=== PATIENT | female | born 1930 | race Caucasian/White ===

== ENCOUNTER 2017-07-13 14:11 | Inpatient (IN) ==
[2017-07-13 16:57] VITALS: BMI 21.6
[2017-07-13] MEDS: DICLOFENAC 1% TOP GEL 100gm TP SCH ×3 (18:41→20:52)
[2017-07-13] MEDS: FERROUS SULFATE 324 MG TABLET PO SCH (18:41)
[2017-07-13] MEDS: HYDROCODONE/APAP 5mg/325mg TABLET PO PRN (23:22)
[2017-07-14] MEDS: HYDROCODONE/APAP 5mg/325mg TABLET PO PRN (05:53)
[2017-07-14] MEDS: FERROUS SULFATE 324 MG TABLET PO SCH ×2 (09:00→17:31)
[2017-07-14] MEDS: DICLOFENAC 1% TOP GEL 100gm TP SCH ×4 (09:02→20:56)
[2017-07-14] MEDS: AMLODIPINE 10 MG TABLET PO SCH (09:02)
[2017-07-14] MEDS: LIDOCAINE 5% PATCH TOP SCH (09:02)
[2017-07-14] MEDS: MULTI-VITAMIN + MINERAL TABLET PO SCH (09:05)
[2017-07-14] MEDS: ASPIRIN *EC* 81 MG TABLET PO SCH (09:05)
--- NOTE | 2017-07-14 09:42 | History & Physical Report ---
History of Present Illness Date: 07/14/17 (PCP: Dr. Blu Hernandez) Chief complaint: Fall, prolonged downtime HPI: Daisy is a very pleasant 86-year-old female but appears younger than her stated age. She has a very difficult past medical history. She had apparently fallen on 07/07/2017, and remained on the floor until 07/10/2017 when she was found by her family. (She does have a life alert, which she doesn't wear). EMS was called, and she was taken into the hospital at [facility]. She was subsequently admitted with acute kidney injury, and baseline creatinine of 1.51. I am assuming there was some degree of rhabdomyolysis, but I do not have a CPK to confirm that diagnosis. Medical records from [facility] are limited in regards to what was sent with the patient, so history of lab and other medical occurrences while inpatient are not available to me. Following medical stabilization, recommendation has been made for inpatient rehabilitation. She has been transferred to [facility] IRU for further evaluation and treatment. Medical management consult has been requested from our service. Daisy has been up with therapy this morning. She is complaining of some low back pain and fatigue today. She denies any other acute complaints or concerns, other than the desire to return to bed and rest this morning following therapy. Review of Systems All systems PM: 10-point ROS was reviewed, no additional remarkable complaints except Review of systems: Her main complaint today is generalized fatigue and low back pain. She does not report any other acute complaints or concerns today. Past Medical History Medical History: Medical History (Last Reviewed 02/21/17 @ 10:13 by John Fowler MD) Cataracts, both eyes Pneumonia Medical History Updates: Allergic rhinitis. Anemia of chronic disease. Cataract. Chronic kidney disease, baseline creatinine approximately 1.2. 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 Status post renal transplant 1970. Heart failure, ejection fraction unknown. 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 HTN. GERD, esophageal dysmotility; PUD. Migraine. Mitral regurg. Osteoporosis. Pulmonary tuberculosis status post wedge resection, right. Rheumatic fever. 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 SLE, rheumatoid arthritis, not currently following with rheumatology. Traumatic hematoma of the face. Denies prior history of PE or DVT Surgical History: Colonoscopy, EGD. Renal transplant, 1971. LEROY/BSO. Bilateral tubal ligation. Blood transfusion. Cataract. Hip replacement, bilateral. History of septic joint status post I&D of the hip. Laminectomy. Right lobectomy. Splenectomy. Thyroidectomy Family History: Family History Brother: CAD, diabetes, [place] Mother: Old age Father: Dementia Sister: Chronic kidney disease, stomach cancer Child: Hypertension Family History: As Above - Social History Smoking status: Never smoker Substance use type: does not use Alcohol intake frequency: does not drink Housing: house Current occupational status: retired Current residence: Apartment/Private Home Medications Home Medications Medication Instructions Recorded Confirmed Type Acetaminophen [Tylenol Arthritis] 650 mg PO Q6HR PRN #0 08/31/09 07/13/17 History Amlodipine Besylate 10 mg PO DAILY #0 12/18/15 07/13/17 History Aspirin [Aspir 81] 81 mg PO DAILY #0 12/18/15 07/13/17 History Ferrous Sulfate 325 mg PO BIDWM #0 12/18/15 07/13/17 History Multivit,Calc,Mins/Iron/Folic 1 tab PO DAILY #0 12/18/15 07/13/17 History [Thera M Plus Tablet] predniSONE [Prednisone] 3 mg PO DAILY #0 12/18/15 07/13/17 History Diclofenac Top Gel [Voltaren] 1 applicatio TP QID 07/13/17 07/13/17 History Lidocaine 5% Patch [Lidoderm] 1 patch TOP DAILY 07/13/17 07/13/17 History Metoprolol Tartrate [Lopressor] 12.5 mg PO BIDWM 07/13/17 07/13/17 History Ondansetron HCl [Zofran] 4 mg PO Q6HR PRN 07/13/17 07/13/17 History Allergies Allergy/AdvReac Type Severity Reaction Status Date / Time cefdinir Allergy Unknown Verified 07/13/17 19:19 pneumococcal vaccine Allergy Unknown Verified 07/14/17 16:10 tramadol Allergy Unknown Verified 07/13/17 19:19 Exam Vital Signs: Temperature 97.6 F 07/14/17 08:00 Pulse Rate 63 07/14/17 08:00 Respiratory Rate 16 07/14/17 08:00 Blood Pressure 109/51 07/14/17 08:00 Pulse Oximetry 95 07/14/17 08:00 Height/Weight/BMI: Height 1.59 m Weight 54.4 kg Body Mass Index 21.6 - Constitutional Present: no acute distress, average body habitus, cooperative, other (frail, generalized weakness) Comments: Gen.: Patient is up in a chair, awake and alert. Mildly anxious. Appears frail and elderly. Head: Atraumatic, normocephalic ENT: no external trauma. Oral mucosa is moist. Neck: Supple. No cervical lymphadenopathy appreciated. Cardiovascular: S1, S2. Regular rate and rhythm. No appreciable murmur. No edema. Pulmonary: Lungs are clear to auscultation bilaterally. No crackles or wheezes. No shortness of air Abdomen: Soft, nontender, nondistended. : Deferred. Extremities: No edema, cyanosis or clubbing. Neurologic: Grossly intact as tested Results - Labs CBC & Chem 7: 07/14/17 05:00 07/14/17 05:00 Labs: Admission labs 07/10/2017 White blood cells 11.1 Hgb 12.2 HCT 37.5 plt 275 Sodium 148 CO2 15 Potassium 4.0 BUN 37 SCR 1.51 ESR 49 CPK 279 B12 1700 Troponin, UA, Lactate OK BNP Ok. - ECG Data Tracing #1 I reviewed this ECG and interpreted as documented below: Multiple EKGs from via [facility] reviewed. Atrial fibrillation, concern for anterior lateral and inferior ischemia. - Impressions Admission imaging 07/10/[address] lumbar spine without contrast No acute CT findings. Multilevel moderate to advanced neural foraminal narrowing. 2. Chest x-ray Normal 3. X-ray pelvis, bilateral Hardware intact, no acute bony abnormalities Assessment and Plan (1) Unspecified fall, subsequent encounter Current visit: Yes Status: Acute Assessment and Plan: Impression: Fall with prolonged down time Acute kidney injury, resolved Kidney disease status post renal transplant, Baseline serum creatinine around 1.1 Generalized weakness Acute on chronic low back pain Chronic immunosuppression: Status post transplant, rheumatoid arthritis, SLE History of septic joint, 2015 (GBS positive) Heart failure, unknown ejection fraction Atrial fibrillation GERD 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 Anemia, acute on chronic Plan: 07/14/2017 Agree with IRU admission. Therapy per attending. We will follow for medical management, care post discharge will be returned to Dr. Hernandez. We will need to follow lab frequently due to her multiple comorbidities. Anemia is noted, unclear on her baseline. Her hemoglobin was around 12 upon acute admission, but she was quite dehydrated. She does have noted macrocytosis. B12 was elevated. Folate not done, will assess. Mild Rhabdo, with CPK 279, trending down on discharge. Despite abnormal EKG, Troponin ok. She is chronically immunosuppressed. White blood cell count mildly elevated, but she does not appear acutely infected. She is on chronic steroid therapy. Assess UA for baseline. Chest x-ray done at [facility] was benign. Assess EKG for baseline here at [facility]. Continue Lidoderm patch for pain control of lower back. Use caution with Voltaren gel even her known chronic kidney disease. If pain & weakness persist, we may need to consider an MRI of her lumbar spine. Will add LMWH for DVT px. Continue supportive care. Thank you for the consult- we will follow with you. DVT Prophylaxis: Lovenox Resuscitation Status: Full Code - Physician Narrative Physician: Vannesa Raymundo MD Narrative: Date: 07/14/17 Time: 2039 I have independently evaluated and examined this patient. I reviewed the chart, the patient's history, and the GERIATRICS PHYSICIAN/PA's documented findings as above. We discussed and formulated the assessment and plan as above with additions as below: Mrs. Worley transferred from [facility] after hospitalization for acute kidney injury after a fall after which she was on the floor for approximately 2-1/2 days. Remarkably CPK was minimally elevated although she did develop acute kidney injury. At present she describes generalized myalgias and abdominal bruising. She reports fatigue after working with therapy today. NAD, alert, fluent speech Respirations nonlabored, good airflow, breath sounds clear anteriorly Regular rhythm, S1-S2 Abdomen soft with several large hematomas present primarily in the right lower quadrant Labs as above; creatinine today 1.1-near baseline. Supportive care in conjunction with physical therapy for strengthening. Decrease iron to once daily based on recent data that twice a day dosing decreases the effectiveness of iron therapy. Hospital Course Summary Disclaimer: The visit summary below is not to be considered part of the above Progress Note. Hospital Course: Impression: Fall with prolonged down time Acute kidney injury, resolved Kidney disease status post renal transplant, Baseline serum creatinine around 1.1 Generalized weakness Acute on chronic low back pain Chronic immunosuppression: Status post transplant, rheumatoid arthritis, SLE History of septic joint, 2015 (GBS positive) Heart failure, unknown ejection fraction Atrial fibrillation GERD 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 Anemia, acute on chronic Plan: 07/14/2017 Agree with IRU admission. Therapy per attending. We will follow for medical management, care post discharge will be returned to Dr. Hernandez. We will need to follow lab frequently due to her multiple comorbidities. Anemia is noted, unclear on her baseline. Her hemoglobin was around 12 upon acute admission, but she was quite dehydrated. She does have noted macrocytosis. B12 was elevated. Folate not done, will assess. Mild Rhabdo, with CPK 279, trending down on discharge. Despite abnormal EKG, Troponin ok. She is chronically immunosuppressed. White blood cell count mildly elevated, but she does not appear acutely infected. She is on chronic steroid therapy. Assess UA for baseline. Chest x-ray done at [facility] was benign. Assess EKG for baseline here at [facility]. Continue Lidoderm patch for pain control of lower back. Use caution with Voltaren gel even her known chronic kidney disease. If pain & weakness persist, we may need to consider an MRI of her lumbar spine. Will add LMWH for DVT px. Continue supportive care. Thank you for the consult- we will follow with you. Addendum entered and electronically signed by Raquel Dai APRN 07/14/17 10:19 : Further records were obtained from [facility]. She was noted to have a temperature of 101.8 on the day of dismissal. Follow-up chest x-ray was obtained , and was negative. Repeat UA was done and was negative. Patient did undergo an MRI of the lumbar spine, which showed no traumatic fracture or misalignment. Multilevel DDD, and no evidence of abscess. White blood cell count was 9.8 on the date of dismissal. Dr. Bills was notified of atrial fibrillation, and plans to follow up with the patient as an outpatient. HR was regulated on low- dose metoprolol, and ASA was continued for anti-platelet therapy. Call provider order for temp of 101.0 added- if occurs, will need to check Blood cultures. Monitor joints due to hx of septic arthritis (remote- 2014).
--- NOTE | 2017-07-14 11:11 | IRU History & Physical Report ---
HPI IRU Date: Date: 07/14/17 Time: 1107 HPI: Daisy is an 86 year old female who fell on 07/07/2017. He remained on the floor until 07/10/2017 found by her family. She was taken to the hospital via [facility] admitted with acute kidney injury and medically evaluated. She is being transferred to the rehabilitation unit for recovery from this injury. Her main complaint is of left low back pain which limits her ability to function. [facility] Patient Stated Medical History Cataracts Yes Congestive Heart Failure Yes Heart Murmur Yes Hypertension Yes Rheumatic Fever Yes Valvular Heart Disease Yes: 'LEAKY VALVE' Pneumonia Yes: HX Tuberculosis Yes: HX OF Constipation Yes: Pt. reports it is not unusual for her to go a few days w/o BM Hx Incontinence No Anemia Yes Osteoarthritis Yes Other Musculoskeletal osteoporosis Clinic Medical History (Last Reviewed 02/21/17 @ 10:13 by John Fowler MD) Cataracts, both eyes (Acute Medical) Pneumonia (Acute Medical) Medical History Updates: Allergic rhinitis. Anemia of chronic disease. Cataract. Chronic kidney disease, baseline creatinine approximately 1.2. 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 Status post renal transplant 1970. Heart failure, ejection fraction unknown. Palliative Senior Np Dr. Bills. HTN. GERD, esophageal dysmotility; PUD. Migraine. Mitral regurg. Osteoporosis. Pulmonary tuberculosis status post wedge resection, right. Rheumatic fever. 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 SLE, rheumatoid arthritis, not currently following with rheumatology. Traumatic hematoma of the face. Denies prior history of PE or DVT Surgical History: Colonoscopy, EGD. Renal transplant, 1970. LEROY/BSO. Bilateral tubal ligation. Blood transfusion. Cataract. Hip replacement, bilateral. History of septic joint status post I&D of the hip. Laminectomy. Right lobectomy. Splenectomy. Thyroidectomy Family History: Family History (Last Reviewed 02/21/17 @ 10:13 by John Fowler MD) Sister Lupus Cancer Stomach Father Enlarged heart Mother No problems noted. - Social History Smoking status: Never smoker Substance use type: does not use Alcohol intake frequency: does not drink Housing: house Current occupational status: retired Current residence: Apartment/Private Home Review of Systems Comprehensive ROS: completed and no additional positive findings except those as stated - Constitutional Constitutional: Present: as per HPI, fatigue, malaise Medications Home Medications Medication Instructions Recorded Confirmed Type Acetaminophen [Tylenol Arthritis] 650 mg PO Q6HR PRN #0 08/31/09 07/13/17 History Amlodipine Besylate 10 mg PO DAILY #0 12/18/15 07/13/17 History Aspirin [Aspir 81] 81 mg PO DAILY #0 12/18/15 07/13/17 History Ferrous Sulfate 325 mg PO BIDWM #0 12/18/15 07/13/17 History Multivit,Calc,Mins/Iron/Folic 1 tab PO DAILY #0 12/18/15 07/13/17 History [Thera M Plus Tablet] predniSONE [Prednisone] 3 mg PO DAILY #0 12/18/15 07/13/17 History Diclofenac Top Gel [Voltaren] 1 applicatio TP QID 07/13/17 07/13/17 History Lidocaine 5% Patch [Lidoderm] 1 patch TOP DAILY 07/13/17 07/13/17 History Metoprolol Tartrate [Lopressor] 12.5 mg PO BIDWM 07/13/17 07/13/17 History Ondansetron HCl [Zofran] 4 mg PO Q6HR PRN 07/13/17 07/13/17 History Allergies Allergy/AdvReac Type Severity Reaction Status Date / Time cefdinir Allergy Unknown Verified 07/13/17 19:19 tramadol Allergy Unknown Verified 07/13/17 19:19 Exam Vital Signs: Temperature 97.6 F 07/14/17 08:00 Pulse Rate 63 07/14/17 08:00 Respiratory Rate 16 07/14/17 08:00 Blood Pressure 109/51 07/14/17 08:00 Pulse Oximetry 95 07/14/17 08:00 Height/Weight/BMI: Height 1.59 m Weight 54.4 kg Body Mass Index 21.6 - Constitutional Present: moderate distress, well nourished - Routine HEENT Exam Head: Present: normocephalic - Routine Respiratory Exam Present: CTA bilaterally - Routine Cardiovascular Exam Present: RRR - Routine Abdominal Exam Present: soft - Routine Back/Spine/Pelvis Exam Back/Spine: Present: paraspinal tenderness Pelvis: Present: SI joint tenderness - Routine Neurological Exam Present: alert, oriented X3 - Routine Psychiatric Exam Present: normal affect IRU A/P (1) Unspecified fall, subsequent encounter Current visit: Yes Status: Acute (2) History of back surgery Current visit: No Status: Chronic (3) Status post kidney transplant Current visit: No Status: Chronic DVT Prophylaxis: Lovenox Resuscitation Status: Full Code - Course Hospital Course: John Fowler MD: - Interventions to Obtain Goals PT Treatment Plan: Balance/Proprioception, Electrical Stimulation, Functional Activities, Hot/Cold Pack OT Treatment Plan: ADL (Basic Care), Balance Training, IADL, Pt./Family Education, Ther. Exercise for ADL Goals Progress/Modifications: mobilize
--- NOTE | 2017-07-14 11:19 | IRU 24Hr Post Admit Eval ---
24 Hr Post Admission Physical - Relevant Changes Relevant Changes: No Reviewed: I have reviewed the patient's information and concur with the finding and results of the pre-admission screen. Certification: I certify the patient for rehabilitation. - Patient Condition (1) Unspecified fall, subsequent encounter Status: Acute Code(s): W19.XXXD - Unspecified fall, subsequent encounter Classification: Present on IRF Admission (2) History of back surgery Status: Chronic Code(s): Z98.890 - Other specified postprocedural states Classification: Present on IRF Admission (3) Status post kidney transplant Status: Chronic Code(s): Z94.0 - Kidney transplant status Classification: Present on IRF Admission, Diagnosis Requiring Medical Follow Up (continue to monitor) - Prior Functional Status Lives With: Alone Residence Type: Apartment/Private Home Assitive Devices: None Prior Functional Status: Indep. at home or school - Current Functional Status Current Level of Function: reduced due to pain Failed Alternative Therapy: Arrived from Acute Care Patient Requirements: The patient requires oversight by rehabilitation physician to manage their rehabilitation treatment plan and multidisciplinary approach to care that can only be provided in an IRF and requires a multidisciplinary approach to care, provided by professional PTs, OTs, STs, dieticians, RTs, rehabilitation nurses and is not available in lesser levels of care. Limitations Req: Mobility Impairment, Limited Mobility Physical Therapy Minutes: 90 Occupational Therapy Minutes: 90 Therapy: The patient is to receive therapy at least 5 days a week. - Complications/Comorbidities Barriers to Discharge: Weakness, Balance, Endurance - Impact of Co-morbidities on function need to monitor kidney function - Plan to Avoid Complications Plan to Avoid Complications: The patient cannot receive this care in a lesser intensive setting such as Shelter or Outpatient Therapy due to the patient requiring the following .
--- NOTE | 2017-07-14 11:24 | IRU Progress Note ---
- Subjective/Serverity of Illness Date: 07/14/17 Left low back and SI joint area are very painful today. Laboratory studies reveal slightly elevated white count, high C-reactive protein, creatinine of 1.1 and 21. She is also anemic with a hemoglobin of 8.7. Exam Vital Signs: Temperature 97.6 F 07/14/17 08:00 Pulse Rate 63 07/14/17 08:00 Respiratory Rate 16 07/14/17 08:00 Blood Pressure 109/51 07/14/17 08:00 Pulse Oximetry 95 07/14/17 08:00 Height/Weight/BMI: Height 1.59 m Weight 54.4 kg Body Mass Index 21.6 - Constitutional Present: moderate distress - Routine Back/Spine/Pelvis Exam Back/Spine: Present: paraspinal tenderness Pelvis: Present: SI joint tenderness (left side) - Routine Neurological Exam Present: alert, oriented X3 - Routine Psychiatric Exam Present: normal affect IRU A/P (1) Unspecified fall, subsequent encounter Current visit: Yes Status: Acute (2) History of back surgery Current visit: No Status: Chronic (3) Status post kidney transplant Current visit: No Status: Chronic DVT Prophylaxis: Lovenox Resuscitation Status: Full Code - Course Hospital Course: John Fowler MD: - Interventions to Obtain Goals PT Treatment Plan: Balance/Proprioception, Electrical Stimulation, Functional Activities, Hot/Cold Pack OT Treatment Plan: ADL (Basic Care), Balance Training, IADL, Pt./Family Education, Ther. Exercise for ADL
--- NOTE | 2017-07-14 11:26 | IRU Plan of Care ---
IRU Overall Plan of Care - Patient Impairments (1) Unspecified fall, subsequent encounter Code(s): W19.XXXD - Unspecified fall, subsequent encounter Status: Acute Classification: Present on IRF Admission (2) History of back surgery Code(s): Z98.890 - Other specified postprocedural states Status: Chronic Classification: Present on IRF Admission (3) Status post kidney transplant Code(s): Z94.0 - Kidney transplant status Status: Chronic Classification: Present on IRF Admission, Diagnosis Requiring Medical Follow Up (continue to monitor) - Relevant Changes Reviewed: I have reviewed the patient's information and concur with the finding and results of the pre-admission screen. Certification: I certify the patient for rehabilitation. - Medical Prognosis Medical Prognosis: Fair Vital Signs: Last Vital Signs Temp 97.6 F 07/14/17 08:00 Pulse 63 07/14/17 08:00 Resp 16 07/14/17 08:00 BP 109/51 07/14/17 08:00 Pulse Ox 95 07/14/17 08:00 - Anticipated Interventions Anticipated Interventions: The patient requires inpatient IRF care for PT, OT, and/or ST for residuals remaining from [] resulting in muscular weakness and strength deficits. - Current Functional Status Failed Alternative Therapy: Arrived from Acute Care Patient Requires: The patient requires oversight by rehabilitation physician to manage their rehabilitation treatment plan and multidisciplinary approach to care that can only be provided in an IRF and requires a multidisciplinary approach to care, provided by professional PTs, OTs, STs, rehabilitation nurses, and may require STs, dieticians, and RTS. This is not available in lesser levels of care. Physical Therapy Minutes: 90 Occupational Therapy Minutes: 90 Therapy: The patient is to receive therapy at least 5 days a week. - Anticipated LOS/Outcomes Anticipated Functional Outcome: return to prior living arrangements Anticipated Length of Stay (days): 14 Anticipated DC Destination: Home, Self Detention Safety Plan: The patient will be provided with the development of a Home Safety Plan for return to a home or home-like environment and and to ensure safety post discharge. - Plan to Avoid Complications Barriers to Attaining Goals: Weakness, Balance, Endurance Plan to Avoid Complications: The patient cannot receive this care in a lesser intensive setting such as [facility] or Outpatient Therapy due to the patient requiring the following .
[2017-07-14] MEDS: LIDOCAINE PATCH REMOVAL TOP SCH (21:16)
[2017-07-15] MEDS: HYDROCODONE/APAP 5mg/325mg TABLET PO PRN ×4 (00:16→21:08)
[2017-07-15] MEDS: ONDANSETRON 4 MG TABLET PO PRN ×2 (05:29→11:49)
[2017-07-15] MEDS: FERROUS SULFATE 324 MG TABLET PO SCH (08:43)
[2017-07-15] MEDS: MULTI-VITAMIN + MINERAL TABLET PO SCH (08:44)
[2017-07-15] MEDS: ENOXAPARIN 40 MG/0.4 ML INJECTION SQ SCH (08:44)
[2017-07-15] MEDS: LIDOCAINE 5% PATCH TOP SCH (08:44)
[2017-07-15] MEDS: AMLODIPINE 10 MG TABLET PO SCH (08:45)
[2017-07-15] MEDS ORDERED: DICLOFENAC 1% TOP GEL 100gm TP PRN (09:00)
[2017-07-15] MEDS: AMLODIPINE 5 MG TABLET PO SCH (09:30)
[2017-07-15] MEDS: ASPIRIN *EC* 81 MG TABLET PO SCH (09:37)
--- NOTE | 2017-07-15 09:49 | Progress Note ---
Progress Note: Daisy was seen today in follow-up. She continues to endorse having significant left hip pain. She continues to require frequent pain medication in addition to the Lidoderm patch. Concerned that we need to obtain further imaging due to her past history of septic hip. She does endorse a prior history of infection in the left hip, and reports that Dr. Fowler did have to previously perform an I&D due to infection. She is agreeable to further evaluation of this hip. She did have low grade temp overnight. Continues to have persistent leukocytosis , and CRP is quite elevated. Vital Signs - 24 hr 07/14/17 16:00 07/14/17 20:03 07/15/17 00:59 Temperature 99.0 F 98.9 F Pulse Rate 85 92 Respiratory Rate 14 20 16 Blood Pressure 108/55 113/72 Pulse Oximetry 97 97 07/15/17 08:00 Temperature 97.4 F Pulse Rate 102 H Respiratory Rate 18 Blood Pressure 112/54 Pulse Oximetry 96 She is in the dining area, so I did not attempt to examine her hip. She is awake and alert, in no distress. Skin is warm and pink. She is breathing without difficulty. Abdomen is benign 07/15/17 03:52 07/14/17 07/15/17 05:00 03:52 WBC 11.2 H 11.7 H RBC 2.69 L 2.66 L Hgb 8.9 L 8.7 L Hct 27.5 L 27.2 L MCV 102.2 H 102.3 H MCH 33.1 32.7 MCHC 32.4 32.0 RDW Std Deviation 49.6 49.1 Plt Count 215 226 MPV 10.3 10.8 Immature Gran % (Auto) 0.2 Not performed Neut % (Auto) 72.6 H Not performed Lymph % (Auto) 13.0 L Not performed [place] % (Auto) 13.5 H Not performed Eos % (Auto) 0.6 Not performed Baso % (Auto) 0.1 Not performed Neut # (Auto) 8.1 H Not performed Lymph # (Auto) 1.5 Not performed [place] # (Auto) 1.5 H Not performed Eos # (Auto) 0.1 Not performed Baso # (Auto) 0.0 Not performed Abs Immat Gran (auto) 0.02 Not performed Neutrophils % (Manual) 80.0 H Band Neutrophils % 2.0 Lymphocytes % (Manual) 16.0 L Monocytes % (Manual) 1.0 Eosinophils % (Manual) 1.0 Neutrophils # (Manual) 9.4 H Band Neutrophils # 0.2 Lymphocytes # (Manual) 1.9 Monocytes # (Manual) 0.1 Eosinophils # (Manual) 0.1 RBC Morph Comment Normal CRP 178.8 --> 190.7 Impression: Persistent leukocytosis History of septic hip, group B strep Immunocompromise (RA, SLE, H/O renal transplant) HTN, with blood pressure trending down Plan: CT hip, left to R/O septic joint Monitor WBC, fever. Observe off abx for now. Get BC x 2. Repeat labs in AM. Decrease Amlodipine dosing. D/W pt- she agrees with further imaging. D/W Dr. Raymundo.
[2017-07-16] MEDS: LIDOCAINE PATCH REMOVAL TOP SCH ×2 (01:09→21:41)
[2017-07-16] MEDS: LIDOCAINE 5% PATCH TOP SCH (08:58)
[2017-07-16] MEDS: FERROUS SULFATE 324 MG TABLET PO SCH (08:59)
[2017-07-16] MEDS: AMLODIPINE 5 MG TABLET PO SCH (09:00)
[2017-07-16] MEDS: ASPIRIN *EC* 81 MG TABLET PO SCH (09:00)
[2017-07-16] MEDS: ENOXAPARIN 40 MG/0.4 ML INJECTION SQ SCH (09:00)
[2017-07-16] MEDS: MULTI-VITAMIN + MINERAL TABLET PO SCH (09:02)
[2017-07-16] MEDS: HYDROCODONE/APAP 5mg/325mg TABLET PO PRN (09:44)
--- NOTE | 2017-07-16 12:32 | CT Scan Report ---
Indication: Left hip pain, hx of septic hip PROCEDURE: CT hip LT wo con: Encounter: Initial Comparison: None Technique: Axial CT images were performed through the left hip without intravenous contrast. Coronal and sagittal two-dimensional reformats. Automated Exposure Control and Iterative Reconstruction dose reducing techniques were utilized. Findings: Metallic artifact from the left hip replacement. No acute fracture identified. No focal fluid collection appreciated. Soft tissues of the pelvis where seen are grossly normal. Muscular attenuation is within normal limits. No periosteal reaction or lytic osseous destructive lesion seen. There is a small amount of cement seen in the left pelvic sidewall that traversed the cortex of the acetabulum. Impression: No acute fracture or abscess. There is a preliminary report by [facility]. .
[2017-07-17] MEDS: HYDROCODONE/APAP 5mg/325mg TABLET PO PRN ×4 (02:11→23:30)
[2017-07-17] MEDS: ENOXAPARIN 40 MG/0.4 ML INJECTION SQ SCH (08:53)
[2017-07-17] MEDS: FERROUS SULFATE 324 MG TABLET PO SCH (08:54)
[2017-07-17] MEDS: AMLODIPINE 5 MG TABLET PO SCH (08:54)
[2017-07-17] MEDS: MULTI-VITAMIN + MINERAL TABLET PO SCH (08:54)
[2017-07-17] MEDS: ASPIRIN *EC* 81 MG TABLET PO SCH (08:54)
[2017-07-17] MEDS: LIDOCAINE 5% PATCH TOP SCH (11:08)
--- NOTE | 2017-07-17 11:48 | Progress Note ---
Progress Note: I discussed the issue of resuscitation with Daisy today per request of the nurse. The patient had apparently told someone that she did not want to be resuscitated in the event of an arrest. She repeated that to me today and states she does NOT want any heroic actions to be undertaken in the event of an arrest. No CPR, no vents, no meds, no intubation.
--- NOTE | 2017-07-17 14:32 | IRU Progress Note ---
- Subjective/Serverity of Illness Date: 07/17/17 Daisy was interviewed and examined in her room on acute inpatient rehabilitation. She had fallen at home and was on the floor for prolonged time. She was admitted to a hospital in [place] and then transferred here for rehabilitation. She does have a remote history of kidney transplant from her brother who was a donor in 1970. Her renal function has remained stable but did have a bump in her creatinine upon admission to [facility]. That has since improved. She complains of significant pain in the left hip. She does have history of previous infection in the left hip apparently. She was running a low-grade fever of 100 which has resolved. Blood cultures are negative 2. CT of the left hip has been performed and is unremarkable. Etiology of her left hip pain is unclear. She is tender to palpate over the greater trochanteric bursa so this could be a bursitis. She is cooperative with therapy. We had a discussion with her regarding resuscitation desires and please see separate note in this regard. Essentially she requests that she be made a no CODE BLUE. Medical issues we are actively monitoring and managing as follows: 1. Generalized debilitation from her fall 2. Left hip pain with negative imaging including CT scan. I would suspect trochanteric bursitis in this regard. 3. Anemia, likely of chronic disease related to renal failure although rule out acute blood loss. 4. History of atrial fibrillation. Current electrocardiogram shows ectopic atrial rhythm versus atrial fibrillation. She is on enoxaparin at present. 5. Back pain Exam Vital Signs: Temperature 98.4 F 07/17/17 07:30 Pulse Rate 84 07/17/17 07:30 Respiratory Rate 16 07/17/17 07:30 Blood Pressure 105/46 07/17/17 07:30 Pulse Oximetry 95 07/17/17 07:30 Height/Weight/BMI: Height 1.59 m Weight 54.4 kg Body Mass Index 21.6 - Constitutional Present: mild distress (Left hip pain), well nourished, well developed, thin, cooperative - Routine HEENT Exam Head: Present: normocephalic Eye: Present: EOMI ENT: Present: mucous membranes moist, oropharynx clear - Routine Neck Exam Present: supple - Routine Respiratory Exam Present: decreased breath sounds, CTA bilaterally. Absent: wheezes - Routine Cardiovascular Exam Present: RRR, S1, S2. Absent: murmur - Routine Abdominal Exam Present: soft, normoactive bowel sounds, non distended. Absent: tenderness - Routine Extremities Exam Present: no edema, normal capillary refill - Routine Back/Spine/Pelvis Exam Comments: She is this was late tender over the left lateral trochanteric bursa. - Routine Skin Exam Present: dry, warm - Routine Neurological Exam Present: alert, oriented X3, CN II-XII intact - Routine Psychiatric Exam Present: normal affect, cooperative Results IRU - Labs Labs: I have reviewed other providers notes as well as the patient's laboratory findings and imaging studies. IRU A/P (1) Unspecified fall, subsequent encounter Current visit: Yes Status: Acute Patient continues to be debilitated from her fall. Has pain in the left hip is will be described subsequently. She is cooperative with therapy. (2) Left hip pain Current visit: Yes Status: Acute Has exquisite tenderness to the left greater trochanteric bursa area. Imaging studies have been negative including CT scan. Inflammatory markers are elevated and she does have history of infection in the hip although CT is negative and thus it is less likely this is an infection. (3) Back pain Qualifiers: Back pain location: low back pain Chronicity: chronic Back pain laterality: midline Sciatica presence: without sciatica Qualified Code(s): M54.5 - Low back pain; G89.29 - Other chronic pain Current visit: Yes Status: Chronic Apparently has back pain predating the current episode. This is an ongoing problem for her however. (4) Anemia Qualifiers: Anemia type: due to chronic kidney disease Chronic kidney disease stage: stage 3 (moderate) Qualified Code(s): N18.3 - Chronic kidney disease, stage 3 (moderate); D63.1 - Anemia in chronic kidney disease Current visit: Yes Status: Chronic I'm not certain how far back the anemia dates. Iron studies indicate low serum are as well as reduced TIBC, consistent with anemia of chronic disease. (5) Debility Current visit: Yes Status: Acute DVT Prophylaxis: Lovenox Resuscitation Status: Do Not Resuscitate - Course Hospital Course: John Fowler MD: 07/17/17 14:37 Patient is cooperative with therapy. She requests no resuscitation in the event of an arrest. Recent fever appears to have resolved. CT of left hip negative. - Interventions to Obtain Goals PT Treatment Plan: Balance/Proprioception, Electrical Stimulation, Functional Activities, Hot/Cold Pack, Gait Training, Patient/Family Education, Therapeutic Exercise OT Treatment Plan: ADL (Basic Care), Balance Training, IADL, Pt./Family Education, Ther. Exercise for ADL Goals Progress/Modifications: Patient has elevation of inflammatory markers as well as low-grade fever. However the fever has resolved. Concern was expressed about the possibility of a left hip infection because the pain. CT scan is negative of the left hip. She is tender in the left greater trochanteric bursa and I imagine this represents a bursitis. Her creatinine is stable at present. She does have evidence of GFR around 47, consistent with stage III chronic kidney disease. She does have history of previous renal transplant in 1970 from her brother. She does have anemia and this is likely related to renal etiology as her TIBC is low. She does have quite a bit of discomfort. She is cooperative with therapy however and I anticipate that she will make good progress ultimately.
[2017-07-17] MEDS: LIDOCAINE PATCH REMOVAL TOP SCH (23:30)
[2017-07-18] MEDS: CIPROFLOXACIN 500 MG TABLET PO SCH ×2 (01:46→17:17)
[2017-07-18] MEDS: LIDOCAINE 5% PATCH TOP SCH ×2 (07:39→13:42)
[2017-07-18] MEDS: ASPIRIN *EC* 81 MG TABLET PO SCH (08:35)
[2017-07-18] MEDS: FERROUS SULFATE 324 MG TABLET PO SCH (08:36)
[2017-07-18] MEDS: MULTI-VITAMIN + MINERAL TABLET PO SCH (08:36)
[2017-07-18] MEDS: AMLODIPINE 5 MG TABLET PO SCH (08:36)
[2017-07-18] MEDS: ENOXAPARIN 40 MG/0.4 ML INJECTION SQ SCH (08:38)
--- NOTE | 2017-07-18 11:23 | IRU Progress Note ---
- Subjective/Serverity of Illness Date: 07/18/17 Ms. Worley was interviewed and examined in her room on inpatient rehabilitation. She has continued to have a low-grade temperature of 99. Her urinalysis was markedly positive for full field white cells. Culture is pending. She has now been started on Cipro. She continues to have discomfort in the left hip. This is tender to palpate and is most consistent with a trochanteric bursitis. Denies any loss of appetite or nausea or vomiting. She denies any chest pain. She states that she is tired. From a therapy standpoint she is able to ambulate with a front-wheeled walker with standby assist. This is a significant improvement. She continues to require quite a bit of assistance with transfers however. Exam Vital Signs: Temperature 99.2 F 07/18/17 08:00 Pulse Rate 102 H 07/18/17 08:00 Respiratory Rate 18 07/18/17 08:00 Blood Pressure 128/56 07/18/17 08:00 Pulse Oximetry 94 07/18/17 08:00 Height/Weight/BMI: Height 1.59 m Weight 54.4 kg Body Mass Index 21.6 - Constitutional Present: no acute distress, well nourished, well developed, thin, cooperative Comments: Appears a bit fatigued or depressed. - Routine HEENT Exam Eye: Present: EOMI ENT: Present: mucous membranes moist, oropharynx clear - Routine Neck Exam Present: supple - Routine Respiratory Exam Present: decreased breath sounds, CTA bilaterally. Absent: wheezes - Routine Cardiovascular Exam Present: RRR, S1, S2. Absent: murmur - Routine Abdominal Exam Present: soft, normoactive bowel sounds, non distended. Absent: tenderness - Routine Extremities Exam Present: no edema, normal capillary refill - Routine Skin Exam Present: dry, warm - Routine Neurological Exam Present: alert, oriented X3, CN II-XII intact - Routine Psychiatric Exam Present: normal affect, cooperative, depressed (possibly) Results IRU - Labs Labs: I reviewed her lab including recent UA obtained today along with labs and other chart notes. IRU A/P (1) Unspecified fall, subsequent encounter Current visit: Yes Status: Acute She continues to be quite debilitated from her fall but is making substantial progress. She is able to ambulate 70 feet with a front-wheeled walker. (2) Left hip pain Current visit: Yes Status: Acute Likely this is related to underlying trochanteric bursitis. She is tender to palpate in this area and the CT was negative. However, I would not recommend the use of nonsteroidals in view of her history of kidney problems. (3) Back pain Qualifiers: Back pain location: low back pain Chronicity: chronic Back pain laterality: midline Sciatica presence: without sciatica Qualified Code(s): M54.5 - Low back pain; G89.29 - Other chronic pain Current visit: Yes Status: Chronic (4) Anemia Qualifiers: Anemia type: due to chronic kidney disease Chronic kidney disease stage: stage 3 (moderate) Qualified Code(s): N18.3 - Chronic kidney disease, stage 3 (moderate); D63.1 - Anemia in chronic kidney disease Current visit: Yes Status: Chronic (5) Debility Current visit: Yes Status: Acute (6) UTI (urinary tract infection) Qualifiers: Urinary tract infection type: acute cystitis Hematuria presence: with hematuria Qualified Code(s): N30.01 - Acute cystitis with hematuria Current visit: Yes Status: Acute Continues to have low-grade fever of 99. Her urinalysis is positive. She has been started on Cipro by the hospitalist service overnight. DVT Prophylaxis: Lovenox Resuscitation Status: Do Not Resuscitate - Course Hospital Course: John Fowler MD: 07/17/17 14:37 Patient is cooperative with therapy. She requests no resuscitation in the event of an arrest. Recent fever appears to have resolved. CT of left hip negative. 07/18/17 11:24 UTI diagnosed. Low-grade temp 99. Cooperative with therapy and making progress. - Interventions to Obtain Goals PT Treatment Plan: Balance/Proprioception, Electrical Stimulation, Functional Activities, Hot/Cold Pack, Gait Training, Patient/Family Education, Therapeutic Exercise OT Treatment Plan: ADL (Basic Care), Balance Training, IADL, Pt./Family Education, Ther. Exercise for ADL Goals Progress/Modifications: She continues to complain of discomfort in the left hip which is most consistent with a trochanteric bursitis. However non-steroidals are relatively contraindicated for her. We'll continue therapy. She has been diagnosed with a UTI based on urinalysis and low-grade fever. She continues to run a temperature of 99. She is now on Cipro. I considered other options with regard to the left hip in terms of topical treatment but it is slowly getting better and I think the best course would be to treated symptomatically rather than with a specific medication.
[2017-07-18] MEDS: HYDROCODONE/APAP 5mg/325mg TABLET PO PRN ×2 (13:46→19:41)
--- NOTE | 2017-07-18 14:15 | IRU Team Meeting ---
IRU Team Meeting - Nursing Bladder Assistive Devices Utilized:: Absorbent Pad Bladder Management Level of Assist: Modified Independent Bladder Frequency of Accidents: No accidents Bowel Assistive Devices Utilized:: Medication Bowel Management Level of Assist: Independent Bowel Frequency of Accidents: No accidents Vital Signs: Vital Signs - 24 hr 07/17/17 15:42 07/17/17 20:30 07/18/17 08:00 Temperature 99.1 F 98.3 F 99.2 F Pulse Rate 94 82 102 H Respiratory Rate Blood Pressure 124/52 121/58 128/56 Pulse Oximetry 95 95 94 Current Medications: Acetaminophen (Tylenol Arthritis 650 Mg Sr) 650 mg PO Q6HR PRN PRN Reason: P Last Admin: 07/18/17 05:08 Dose: 650 mg Hydrocodone Bitart/Acetaminophen ([place] 5/325) 0.5 tab PO Q4H PRN PRN Reason: Pain Last Admin: 07/18/17 13:46 Dose: 0.5 tab Amlodipine Besylate (Norvasc) 5 mg PO DAILY COUNT INCLUDES THE [facility] Last Admin: 07/18/17 08:36 Dose: 5 mg Aspirin (Ecotrin) 81 mg PO DAILY COUNT INCLUDES THE [facility] Last Admin: 07/18/17 08:35 Dose: 81 mg Ciprofloxacin (Cipro 500 Mg) 500 mg PO Q12HR COUNT INCLUDES THE [facility] Last Admin: 07/18/17 01:46 Dose: 500 mg Diclofenac Sodium (Voltaren) 1 applic TP QID PRN PRN Reason: Pain Last Admin: 07/17/17 19:31 Dose: 1 applic Enoxaparin Sodium (Lovenox) 40 mg SQ DAILY COUNT INCLUDES THE [facility] Last Admin: 07/18/17 08:38 Dose: 40 mg Ferrous Sulfate (Feosol) 324 mg PO WB COUNT INCLUDES THE [facility] Last Admin: 07/18/17 08:36 Dose: 324 mg Lidocaine (Lidoderm) 1 patch TOP DAILY COUNT INCLUDES THE [facility] Last Admin: 07/18/17 13:42 Dose: Not Given Lidocaine HCl/Dextrose (Lidoderm Patch Removal) 1 removal TOP 2100 COUNT INCLUDES THE [facility] Last Admin: 07/17/17 23:30 Dose: 1 removal Magnesium Hydroxide (Mom) 30 ml PO DAILY PRN PRN Reason: Constipation Last Admin: 07/18/17 08:44 Dose: 30 ml Metoprolol Tartrate (Lopressor) 12.5 mg PO BIDWM COUNT INCLUDES THE [facility] Last Admin: 07/18/17 08:35 Dose: 12.5 mg Multivitamins/Minerals (Therapeutic - M) 1 tab PO DAILY COUNT INCLUDES THE [facility] Last Admin: 07/18/17 08:36 Dose: 1 tab Ondansetron HCl (Zofran Po) 4 mg PO Q6HR PRN PRN Reason: Nausea Last Admin: 07/15/17 11:49 Dose: 4 mg Prednisone (Deltasone 1 Mg) 3 mg PO WB COUNT INCLUDES THE [facility] Last Admin: 07/18/17 08:36 Dose: 3 mg Current Medical Issues: Left hip pain, hx of acute kidney injury, new UTI Comments: I certify that I personally led the interdisciplinary team meeting and agree with comments, barriers and goals indicated. Team meeting was held in the patient's room with the patient and the following family members present: patient alone Ms. Worley has been running a low-grade fever. Her urinalysis was positive for UTI and she is now on Cipro. She has complained of left hip pain which likely is related to trochanteric bursitis. We are hesitant to use nonsteroidals in view of her history of kidney problems and we will try ionophoresis with decadron. Her creatinine is now normal. - Physical Therapy Bed, Chair, Wheelchair Transfer Assist: Stand By Assist/Supervision, 1 Person Assist Ambulation Ability: Stand By Assist/Supervision, 1 Person Assist Ambulation Distance: 168 Stair Climbing Ability: Patient Refuses Car Transfer Ability: Stand By Assist/Supervision, 1 Person Assist Comments: Patient requires motivation to fully participate. She does have some reduced right lower extremity mobility due to pain. She also is beginning to limit the left lower extremity. She complains of discomfort with even light palpation of her back both hips and both eyes. With encouragement and time patient does demonstrate progression toward goals. - Occupational Therapy Eating Ability: Independent Grooming Ability: Stand By Assist/Supervision Bathing Ability: Minimal Assistance Upper Body Dressing Ability: Independent Lower Body Dressing Ability: Minimal Assistance Tub Transfer Assist: Minimal Assistance Toileting Assist: Stand By Assist/Supervision Toilet Transfer Assist: Minimal Assistance Comments: She is progressing with occupational therapy but requires frequent encouragement to follow through with her tasks. She is using assistive devices. Lower body dressing and bathing is with minimal assistance. - Goals Physical Therapy Goals: 07/18/17. 1.) Modified [place] with transfers. 2. ) Modified [place] with ambulation. Occupational Therapy Goals: OT goals 07/18/17: 1.) Upper body dressing independently. 2.) Lower body dressing with modified independence. 3.) Toilet transfers with modified independence. 4.) Light meal preparation with modified independence. - Barriers to Discharge Barriers to Attaining Goals: Balance (to address balance, proprioceptive training and balance training is offered.), Endurance (to improve endurance, fewer rest breaks are encouraged.), Other (patient requires positive reinforcement to improve motivation for participation with therapy.) - Care Plan Anticipated Length of Stay (days): 7 Anticipated DC Destination: Home, Self Care I have led this team conference and agree with the plan. Interventions/Goals: Patient requires encouragement for increased motivation. We will initiate local treatment of the left hip pain which likely is related to trochanteric bursitis. Anticipation safe transition to her home environment in about a week.
--- NOTE | 2017-07-18 14:39 | Progress Note ---
- Date 07/18/17 Subjective: Daisy was in her recliner this afternoon. She still has severe left hip pain. She has had low-grade temps in the 99s. She denies cough/cold or SOA. No abdominal pain or GI complaints. She denies dysuria or frequency but indicated some urgency shortly after I arrived in her room. Nurses report urinary frequency, which triggered an order for UA, which was positive for UTI. Objective Vital signs: Temperature 99.2 F 07/18/17 08:00 Pulse Rate 102 H 07/18/17 08:00 Respiratory Rate 18 07/18/17 08:00 Blood Pressure 128/56 07/18/17 08:00 Pulse Oximetry 94 07/18/17 08:00 Height/Weight/BMI: Height 1.59 m Weight 54.4 kg Body Mass Index 21.6 - Constitutional Present: no acute distress, well nourished, well developed, thin - Routine HEENT Exam Head: Present: normocephalic Eye: Present: PERRL. Absent: conjunctival icterus, scleral injection ENT: Present: mucous membranes moist, oropharynx clear - Routine Respiratory Exam Present: crackles (faint crackles to B/L bases that improved with deep breathing ) - Routine Cardiovascular Exam Present: RRR, S1, S2 - Routine Abdominal Exam Present: soft, normoactive bowel sounds, non distended, non tender - Routine Extremities Exam Present: no edema, pulses intact - Routine Musculoskeletal Exam Musculoskeletal: Present: moving extremities well - Routine Skin Exam Present: intact, dry, warm - Routine Neurological Exam Present: alert, CN II-XII intact, normal speech - Routine Psychiatric Exam Present: normal affect, normal thought process, cooperative Results - Labs CBC & Chem 7: 07/16/17 04:55 07/15/17 03:52 Microbiology Results: Microbiology 07/18/17 00:45 Urine, Voided (Cc/notcc) Urine Culture - Preliminary Escherichia coli 07/15/17 10:31 Peripheral/Iv Start Blood Culture - Preliminary No Growth After 3 Days 07/15/17 10:30 Peripheral/Iv Start Blood Culture - Preliminary No Growth After 3 Days Assessment and Plan (1) Unspecified fall, subsequent encounter Current visit: Yes Status: Acute Assessment and Plan: Impression: Fall with prolonged down time Acute kidney injury, resolved Kidney disease status post renal transplant, Baseline serum creatinine around 1.1 Generalized weakness Acute on chronic low back pain Chronic immunosuppression: Status post transplant, rheumatoid arthritis, SLE History of septic joint, 2014 (GBS positive) Heart failure, unknown ejection fraction Atrial fibrillation GERD 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 Anemia, acute on chronic Plan: UTI with E. coli - Cipro started 07/18/17. Sensitivities pending. Leukocytosis resolved. Anemia - iron studies are low. Continue ferrous sulfate. Folate normal. VSS with occ mild tachycardia. DVT Prophylaxis: Lovenox Resuscitation Status: Do Not Resuscitate - Physician Narrative Narrative: Date: 07/18/17 Time: 1436 Hospital Course Summary Disclaimer: The visit summary below is not to be considered part of the above Progress Note. 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 Anemia, acute on chronic Plan: 07/14/2017 Agree with IRU admission. Therapy per attending. We will follow for medical management, care post discharge will be returned to Dr. Hernandez. We will need to follow lab frequently due to her multiple comorbidities. Anemia is noted, unclear on her baseline. Her hemoglobin was around 12 upon acute admission, but she was quite dehydrated. She does have noted macrocytosis. B12 was elevated. Folate not done, will assess. Mild Rhabdo, with CPK 279, trending down on discharge. Despite abnormal EKG, Troponin ok. She is chronically immunosuppressed. White blood cell count mildly elevated, but she does not appear acutely infected. She is on chronic steroid therapy. Assess UA for baseline. Chest x-ray done at [facility] was benign. Assess EKG for baseline here at [facility]. Continue Lidoderm patch for pain control of lower back. Use caution with Voltaren gel even her known chronic kidney disease. If pain & weakness persist, we may need to consider an MRI of her lumbar spine. Will add LMWH for DVT px. Continue supportive care. Thank you for the consult- we will follow with you. 07/18/17 UTI with E. coli - Cipro started 07/18/17. Sensitivities pending. Leukocytosis resolved. Anemia - iron studies are low. Continue ferrous sulfate. Folate normal.
[2017-07-19] MEDS: LIDOCAINE PATCH REMOVAL TOP SCH ×2 (03:20→21:30)
[2017-07-19] MEDS: FERROUS SULFATE 324 MG TABLET PO SCH (09:54)
[2017-07-19] MEDS: MULTI-VITAMIN + MINERAL TABLET PO SCH (09:55)
[2017-07-19] MEDS: LIDOCAINE 5% PATCH TOP SCH (09:56)
[2017-07-19] MEDS: AMLODIPINE 5 MG TABLET PO SCH (09:56)
[2017-07-19] MEDS: CIPROFLOXACIN 500 MG TABLET PO SCH ×2 (09:56→21:08)
[2017-07-19] MEDS: ENOXAPARIN 40 MG/0.4 ML INJECTION SQ SCH (09:56)
[2017-07-19] MEDS: HYDROCODONE/APAP 5mg/325mg TABLET PO PRN ×2 (09:57→21:08)
[2017-07-19] MEDS: ASPIRIN *EC* 81 MG TABLET PO SCH (09:57)
[2017-07-20] MEDS: HYDROCODONE/APAP 5mg/325mg TABLET PO PRN ×3 (02:41→18:03)
[2017-07-20] MEDS: ASPIRIN *EC* 81 MG TABLET PO SCH (08:49)
[2017-07-20] MEDS: AMLODIPINE 5 MG TABLET PO SCH (08:49)
[2017-07-20] MEDS: CIPROFLOXACIN 500 MG TABLET PO SCH ×2 (08:49→20:52)
[2017-07-20] MEDS: FERROUS SULFATE 324 MG TABLET PO SCH (08:50)
[2017-07-20] MEDS: MULTI-VITAMIN + MINERAL TABLET PO SCH (08:50)
[2017-07-20] MEDS: ENOXAPARIN 40 MG/0.4 ML INJECTION SQ SCH (08:51)
[2017-07-20] MEDS: LIDOCAINE 5% PATCH TOP SCH (08:51)
--- NOTE | 2017-07-20 11:30 | IRU Progress Note ---
- Subjective/Serverity of Illness Date: 07/20/17 Daisy was reassess in her room on inpatient rehabilitation. She reports that she did well this morning with ambulation. Then she took a step and had more pain in the left hip. This has been well evaluated with plain films as well as CT scan. It is my opinion that this likely represents a soft tissue problem consistent with bursitis. Iontophoresis will be initiated today with dexamethasone. She otherwise states that her bowels are moving relatively well. She denies any nausea or vomiting. She denies any chest pain or shortness of breath. She does have easy fatigability. Exam Vital Signs: Temperature 98.0 F 07/20/17 07:31 Pulse Rate 88 07/20/17 07:31 Respiratory Rate 16 07/20/17 07:31 Blood Pressure 129/58 07/20/17 07:31 Pulse Oximetry 96 07/20/17 07:31 Height/Weight/BMI: Height 1.59 m Weight 54.3 kg Body Mass Index 21.6 - Constitutional Present: mild distress (left hip), well nourished, well developed, thin, cooperative - Routine HEENT Exam Eye: Present: EOMI ENT: Present: mucous membranes moist, oropharynx clear - Routine Neck Exam Present: supple - Routine Respiratory Exam Present: CTA bilaterally. Absent: wheezes - Routine Cardiovascular Exam Present: RRR, S1, S2. Absent: murmur - Routine Abdominal Exam Present: soft, normoactive bowel sounds, non distended. Absent: tenderness - Routine Extremities Exam Present: no edema - Routine Skin Exam Present: dry, warm - Routine Neurological Exam Present: alert, oriented X3, CN II-XII intact - Routine Psychiatric Exam Present: normal affect Results IRU - Labs Labs: I have reviewed other providers notes as well as chart data. IRU A/P (1) Unspecified fall, subsequent encounter Current visit: Yes Status: Acute She continues to improve with PT and OT with anticipated safe transfer to home early next week. (2) Left hip pain Current visit: Yes Status: Acute Patient will start iontophoresis today with dexamethasone for relief of what I believe to be left trochanteric bursitis. (3) Back pain Qualifiers: Back pain location: low back pain Chronicity: chronic Back pain laterality: midline Sciatica presence: without sciatica Qualified Code(s): M54.5 - Low back pain; G89.29 - Other chronic pain Current visit: Yes Status: Chronic (4) Anemia Qualifiers: Anemia type: due to chronic kidney disease Chronic kidney disease stage: stage 3 (moderate) Qualified Code(s): N18.3 - Chronic kidney disease, stage 3 (moderate); D63.1 - Anemia in chronic kidney disease Current visit: Yes Status: Chronic (5) Debility Current visit: Yes Status: Acute (6) UTI (urinary tract infection) Qualifiers: Urinary tract infection type: acute cystitis Hematuria presence: with hematuria Qualified Code(s): N30.01 - Acute cystitis with hematuria Current visit: Yes Status: Acute Tolerating antibiotic adequately without nausea or vomiting. DVT Prophylaxis: Lovenox Resuscitation Status: Do Not Resuscitate - Course Hospital Course: John Fowler MD: 07/17/17 14:37 Patient is cooperative with therapy. She requests no resuscitation in the event of an arrest. Recent fever appears to have resolved. CT of left hip negative. 07/18/17 11:24 UTI diagnosed. Low-grade temp 99. Cooperative with therapy and making progress. 07/20/17 11:30 Cooperate with therapy. Making progress. Iontophoresis started today with regard to left hip bursitis. - Interventions to Obtain Goals PT Treatment Plan: Balance/Proprioception, Electrical Stimulation, Functional Activities, Hot/Cold Pack, Gait Training, Patient/Family Education, Therapeutic Exercise OT Treatment Plan: ADL (Basic Care), Balance Training, IADL, Pt./Family Education, Ther. Exercise for ADL
[2017-07-20] MEDS: LIDOCAINE PATCH REMOVAL TOP SCH (20:53)
[2017-07-21] MEDS: HYDROCODONE/APAP 5mg/325mg TABLET PO PRN ×2 (00:58→09:01)
[2017-07-21] MEDS: LIDOCAINE 5% PATCH TOP SCH (08:49)
[2017-07-21] MEDS: AMLODIPINE 5 MG TABLET PO SCH (08:52)
[2017-07-21] MEDS: CIPROFLOXACIN 500 MG TABLET PO SCH ×2 (08:53→20:15)
[2017-07-21] MEDS: MULTI-VITAMIN + MINERAL TABLET PO SCH (09:01)
[2017-07-21] MEDS: ENOXAPARIN 40 MG/0.4 ML INJECTION SQ SCH (09:01)
[2017-07-21] MEDS: FERROUS SULFATE 324 MG TABLET PO SCH (09:01)
[2017-07-21] MEDS: ASPIRIN *EC* 81 MG TABLET PO SCH (09:01)
--- NOTE | 2017-07-21 11:01 | IRU Progress Note ---
- Subjective/Serverity of Illness Date: 07/21/17 Daisy was reassessed in her room on inpatient rehabilitation. She states that the iontophoresis was beneficial with regard to the left hip pain. She continues to progress with therapy and is becoming more independent. She does complain of her feet being "numb." No pain is noted. Pulses are present but diminished. There is no edema. Reviewing therapy, she is modified independent for most activities. She is able to ambulate over 150 feet at modified independent level. Exam Vital Signs: Temperature 98.3 F 07/21/17 08:00 Pulse Rate 77 07/21/17 08:00 Respiratory Rate 14 07/21/17 08:00 Blood Pressure 126/58 07/21/17 08:00 Pulse Oximetry 97 07/21/17 08:00 Height/Weight/BMI: Height 1.59 m Weight 54.3 kg Body Mass Index 21.6 - Constitutional Present: no acute distress, well nourished, well developed Comments: Seems tired and discouraged. - Routine HEENT Exam Eye: Present: EOMI ENT: Present: mucous membranes moist, oropharynx clear - Routine Respiratory Exam Present: decreased breath sounds, CTA bilaterally. Absent: wheezes - Routine Cardiovascular Exam Present: RRR, S1, S2. Absent: murmur - Routine Abdominal Exam Present: soft, normoactive bowel sounds, non distended. Absent: tenderness - Routine Extremities Exam Present: no edema, normal capillary refill - Routine Skin Exam Present: dry, warm - Routine Neurological Exam Present: alert, oriented X3, CN II-XII intact - Routine Psychiatric Exam Present: normal affect, cooperative, depressed (possible) IRU A/P (1) Unspecified fall, subsequent encounter Current visit: Yes Status: Acute Her debilitation is substantially improved. She is able to perform most activities with modified independent level of functioning. (2) Left hip pain Current visit: Yes Status: Acute Patient states that the iontophoresis was beneficial with regard to the left hip pain. (3) Back pain Qualifiers: Back pain location: low back pain Chronicity: chronic Back pain laterality: midline Sciatica presence: without sciatica Qualified Code(s): M54.5 - Low back pain; G89.29 - Other chronic pain Current visit: Yes Status: Chronic (4) Anemia Qualifiers: Anemia type: due to chronic kidney disease Chronic kidney disease stage: stage 3 (moderate) Qualified Code(s): N18.3 - Chronic kidney disease, stage 3 (moderate); D63.1 - Anemia in chronic kidney disease Current visit: Yes Status: Chronic (5) Debility Current visit: Yes Status: Acute (6) UTI (urinary tract infection) Qualifiers: Urinary tract infection type: acute cystitis Hematuria presence: with hematuria Qualified Code(s): N30.01 - Acute cystitis with hematuria Current visit: Yes Status: Acute DVT Prophylaxis: Lovenox Resuscitation Status: Do Not Resuscitate - Course Hospital Course: John Fowler MD: 07/17/17 14:37 Patient is cooperative with therapy. She requests no resuscitation in the event of an arrest. Recent fever appears to have resolved. CT of left hip negative. 07/18/17 11:24 UTI diagnosed. Low-grade temp 99. Cooperative with therapy and making progress. 07/20/17 11:30 Cooperate with therapy. Making progress. Iontophoresis started today with regard to left hip bursitis. 07/21/17 11:01 Patient is doing well with therapy. Anticipate safe transfer to home early next week. - Interventions to Obtain Goals PT Treatment Plan: Balance/Proprioception, Electrical Stimulation, Functional Activities, Hot/Cold Pack, Gait Training, Patient/Family Education, Therapeutic Exercise OT Treatment Plan: ADL (Basic Care), Balance Training, IADL, Pt./Family Education, Ther. Exercise for ADL
[2017-07-21] MEDS: LIDOCAINE PATCH REMOVAL TOP SCH (20:14)
[2017-07-22] MEDS: HYDROCODONE/APAP 5mg/325mg TABLET PO PRN ×2 (00:53→21:22)
[2017-07-22] MEDS: FERROUS SULFATE 324 MG TABLET PO SCH (09:10)
[2017-07-22] MEDS: MULTI-VITAMIN + MINERAL TABLET PO SCH (09:10)
[2017-07-22] MEDS: AMLODIPINE 5 MG TABLET PO SCH (09:11)
[2017-07-22] MEDS: CIPROFLOXACIN 500 MG TABLET PO SCH ×2 (09:11→21:22)
[2017-07-22] MEDS: ASPIRIN *EC* 81 MG TABLET PO SCH (09:11)
[2017-07-22] MEDS: ENOXAPARIN 40 MG/0.4 ML INJECTION SQ SCH (09:11)
[2017-07-22] MEDS: LIDOCAINE 5% PATCH TOP SCH (09:30)
--- NOTE | 2017-07-22 11:32 | Progress Note ---
- Date 07/22/17 Subjective: Daisy was resting in her bedside chair. While therapy is going well and her hip pain is better, she states that she had a miserable night. She was very restless all night and hardly slept. She denies other c/o this am. She requests to get back in bed to rest. Objective Vital signs: Temperature 98.4 F 07/22/17 07:46 Pulse Rate 80 07/22/17 07:46 Respiratory Rate 16 07/22/17 07:46 Blood Pressure 127/50 07/22/17 07:46 Pulse Oximetry 90 07/22/17 07:46 Height/Weight/BMI: Height 1.59 m Weight 54.3 kg Body Mass Index 21.6 - Constitutional Present: no acute distress, well nourished, well developed - Routine HEENT Exam Head: Present: normocephalic Eye: Absent: conjunctival icterus, scleral injection - Routine Respiratory Exam Present: CTA bilaterally - Routine Cardiovascular Exam Present: RRR, S1, S2 - Routine Abdominal Exam Present: soft, normoactive bowel sounds, non distended, non tender - Routine Extremities Exam Present: no edema - Routine Skin Exam Present: intact, dry, warm - Routine Neurological Exam Present: alert, oriented X3, normal speech - Routine Psychiatric Exam Present: normal affect, normal thought process, cooperative Results - Labs CBC & Chem 7: 07/19/17 05:06 07/19/17 05:06 Microbiology Results: Microbiology 07/15/17 10:31 Peripheral/Iv Start Blood Culture - Final No Growth After 5 Days 07/15/17 10:30 Peripheral/Iv Start Blood Culture - Final No Growth After 5 Days 07/18/17 00:45 Urine, Voided (Cc/notcc) Urine Culture - Final Escherichia coli Assessment and Plan (1) Unspecified fall, subsequent encounter Current visit: Yes Status: Acute Assessment and Plan: Impression: Fall with prolonged down time Acute kidney injury, resolved Kidney disease status post renal transplant, Baseline serum creatinine around 1.1 Generalized weakness Acute on chronic low back pain Chronic immunosuppression: Status post transplant, rheumatoid arthritis, SLE History of septic joint, 2015 (GBS positive) Heart failure, unknown ejection fraction Atrial fibrillation GERD 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 Anemia, acute on chronic Thrombocytosis, acute Plan: L hip pain improving after iontophoresis on 07/20 Labs from 09/18 reviewed - anemia stable with hgb 8.5. Increase in platelets noted to 404. WBC normal. Repeat labs on 07/24. Continue Cipro for E. coli UTI - will plan on 5-day course. DC planned 07/25. DVT Prophylaxis: Lovenox Resuscitation Status: Do Not Resuscitate - Physician Narrative Narrative: Date: 07/22/17 Time: 1129 Hospital Course Summary Disclaimer: The visit summary below is not to be considered part of the above Progress Note. 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 Anemia, acute on chronic Plan: 07/14/2017 Agree with IRU admission. Therapy per attending. We will follow for medical management, care post discharge will be returned to Dr. Hernandez. We will need to follow lab frequently due to her multiple comorbidities. Anemia is noted, unclear on her baseline. Her hemoglobin was around 12 upon acute admission, but she was quite dehydrated. She does have noted macrocytosis. B12 was elevated. Folate not done, will assess. Mild Rhabdo, with CPK 279, trending down on discharge. Despite abnormal EKG, Troponin ok. She is chronically immunosuppressed. White blood cell count mildly elevated, but she does not appear acutely infected. She is on chronic steroid therapy. Assess UA for baseline. Chest x-ray done at [facility] was benign. Assess EKG for baseline here at [facility]. Continue Lidoderm patch for pain control of lower back. Use caution with Voltaren gel even her known chronic kidney disease. If pain & weakness persist, we may need to consider an MRI of her lumbar spine. Will add LMWH for DVT px. Continue supportive care. Thank you for the consult- we will follow with you. 07/18/17 UTI with E. coli - Cipro started 07/18/17. Sensitivities pending. Leukocytosis resolved. Anemia - iron studies are low. Continue ferrous sulfate. Folate normal. 07/22/17 L hip pain improving after iontophoresis on 6/14 Labs from 09/18 reviewed - anemia stable with hgb 8.5. Increase in platelets noted to 404. WBC normal. Repeat labs on 07/24. Continue Cipro for E. coli UTI - will plan on 5-day course. DC planned 07/25.
[2017-07-22] MEDS: LIDOCAINE PATCH REMOVAL TOP SCH (22:51)
[2017-07-23] MEDS: LIDOCAINE 5% PATCH TOP SCH ×2 (07:53→08:31)
[2017-07-23] MEDS: ENOXAPARIN 40 MG/0.4 ML INJECTION SQ SCH ×2 (07:54→08:31)
[2017-07-23] MEDS: ASPIRIN *EC* 81 MG TABLET PO SCH (08:57)
[2017-07-23] MEDS: AMLODIPINE 5 MG TABLET PO SCH (08:57)
[2017-07-23] MEDS: FERROUS SULFATE 324 MG TABLET PO SCH (08:57)
[2017-07-23] MEDS: MULTI-VITAMIN + MINERAL TABLET PO SCH (08:57)
[2017-07-23] MEDS: ONDANSETRON 4 MG TABLET PO PRN (11:13)
[2017-07-23] MEDS: HYDROCODONE/APAP 5mg/325mg TABLET PO PRN (20:56)
[2017-07-23] MEDS: LIDOCAINE PATCH REMOVAL TOP SCH (21:18)
[2017-07-24] MEDS: HYDROCODONE/APAP 5mg/325mg TABLET PO PRN ×2 (06:22→22:08)
[2017-07-24] MEDS: ENOXAPARIN 40 MG/0.4 ML INJECTION SQ SCH (09:01)
[2017-07-24] MEDS: LIDOCAINE 5% PATCH TOP SCH (09:01)
[2017-07-24] MEDS: FERROUS SULFATE 324 MG TABLET PO SCH (09:02)
[2017-07-24] MEDS: ASPIRIN *EC* 81 MG TABLET PO SCH (09:02)
[2017-07-24] MEDS: MULTI-VITAMIN + MINERAL TABLET PO SCH (09:03)
[2017-07-24] MEDS: AMLODIPINE 5 MG TABLET PO SCH (09:03)
--- NOTE | 2017-07-24 11:18 | IRU Progress Note ---
- Subjective/Serverity of Illness Date: 07/24/17 Daisy was reassessed on inpatient rehabilitation unit. She is cooperative with therapy. She does display some reduced motivation. From a medical standpoint she is stable. She has received at least 3 episodes of iontophoresis with some benefit. She reports discomfort mainly in the left groin rather than the trochanteric bursa at this time. From an occupational therapy standpoint the patient is standby assist for lower body dressing and is able to dress her upper body with modified independent level. Toileting is modified independent with her activities being independent to modified independent. Physical therapy transfers are standby assist. She is able to ambulate 180 feet with a front wheeled walker with standby assist. Her son would like to have her see a neurologist upon dismissal because of numbness in the lower extremities. We will arrange this per request. Exam Vital Signs: Temperature 97.9 F 07/24/17 08:00 Pulse Rate 89 07/24/17 08:00 Respiratory Rate 20 07/24/17 08:00 Blood Pressure 112/54 07/24/17 08:00 Pulse Oximetry 96 07/24/17 08:00 Height/Weight/BMI: Height 1.59 m Weight 54.3 kg Body Mass Index 21.6 - Constitutional Present: well nourished, well developed, thin, cooperative Comments: Somewhat reduced motivation is noted at times. - Routine HEENT Exam ENT: Present: mucous membranes moist - Routine Neck Exam Present: supple - Routine Respiratory Exam Present: CTA bilaterally. Absent: wheezes - Routine Cardiovascular Exam Present: RRR, S1, S2. Absent: murmur - Routine Abdominal Exam Present: soft, normoactive bowel sounds, non distended. Absent: tenderness - Routine Extremities Exam Present: no edema, normal capillary refill - Routine Skin Exam Present: dry, warm - Routine Neurological Exam Present: alert, oriented X3, CN II-XII intact - Routine Psychiatric Exam Present: normal affect IRU A/P (1) Unspecified fall, subsequent encounter Current visit: Yes Status: Acute (2) Left hip pain Current visit: Yes Status: Acute Patient's left hip pain seems to have migrated into the left groin which may imply more of a degenerative joint disease issue rather than the trochanteric bursitis at this time. (3) Back pain Qualifiers: Back pain location: low back pain Chronicity: chronic Back pain laterality: midline Sciatica presence: without sciatica Qualified Code(s): M54.5 - Low back pain; G89.29 - Other chronic pain Current visit: Yes Status: Chronic (4) Anemia Qualifiers: Anemia type: due to chronic kidney disease Chronic kidney disease stage: stage 3 (moderate) Qualified Code(s): N18.3 - Chronic kidney disease, stage 3 (moderate); D63.1 - Anemia in chronic kidney disease Current visit: Yes Status: Chronic Repeat hemoglobin is stable at 8.6. (5) Debility Current visit: Yes Status: Acute She has missed significant functional progress. She is stable for dismissal tomorrow. She plans to go home to live with her son for the time being. (6) UTI (urinary tract infection) Qualifiers: Urinary tract infection type: acute cystitis Hematuria presence: with hematuria Qualified Code(s): N30.01 - Acute cystitis with hematuria Current visit: Yes Status: Acute DVT Prophylaxis: Lovenox Resuscitation Status: Do Not Resuscitate - Course Hospital Course: John Fowler MD: 07/17/17 14:37 Patient is cooperative with therapy. She requests no resuscitation in the event of an arrest. Recent fever appears to have resolved. CT of left hip negative. 07/18/17 11:24 UTI diagnosed. Low-grade temp 99. Cooperative with therapy and making progress. 07/20/17 11:30 Cooperate with therapy. Making progress. Iontophoresis started today with regard to left hip bursitis. 07/21/17 11:01 Patient is doing well with therapy. Anticipate safe transfer to home early next week. 07/24/17 11:18 Pain more in the left groin rather than the trochanteric bursitis at the present time. Requires frequent motivation and encouragement. Anticipate safe transfer to home tomorrow. - Interventions to Obtain Goals PT Treatment Plan: Balance/Proprioception, Electrical Stimulation, Functional Activities, Hot/Cold Pack, Gait Training, Patient/Family Education, Therapeutic Exercise OT Treatment Plan: ADL (Basic Care), Balance Training, IADL, Pt./Family Education, Ther. Exercise for ADL
[2017-07-24] MEDS: LIDOCAINE PATCH REMOVAL TOP SCH (22:09)
[2017-07-25] MEDS: HYDROCODONE/APAP 5mg/325mg TABLET PO PRN (06:30)
[2017-07-25 08:57] VITALS: BP 112/56; PULSE 92; RESP 20; TEMP 98.4; O2SAT 95
[2017-07-25] MEDS: ASPIRIN *EC* 81 MG TABLET PO SCH (08:57)
[2017-07-25] MEDS: FERROUS SULFATE 324 MG TABLET PO SCH (08:58)
[2017-07-25] MEDS: MULTI-VITAMIN + MINERAL TABLET PO SCH (08:58)
[2017-07-25] MEDS: AMLODIPINE 5 MG TABLET PO SCH (08:58)
[2017-07-25] MEDS: LIDOCAINE 5% PATCH TOP SCH (09:07)
[2017-07-25] MEDS: ENOXAPARIN 40 MG/0.4 ML INJECTION SQ SCH (09:07)
[2017-07-25] MEDS: ONDANSETRON 4 MG TABLET PO PRN (10:11)
--- NOTE | 2017-07-25 11:13 | IRU Progress Note ---
- Subjective/Serverity of Illness Date: 07/25/17 Daisy was evaluated in her room on inpatient rehabilitation. She continues to have some discomfort in the left hip. Previous imaging has failed to reveal significant abnormalities. She did receive iontophoresis with some benefit. Medically the patient is stable. Her hemoglobin has remained stable. Previous iron studies revealed anemia of chronic disease as the most likely etiology. This was discussed with the patient today. She is planning to go home with her son in [place]. Home health will be involved and will recheck lab in a week. In addition I contacted Dr. Hernandez's office to let them know about her dismissal and that there would be lab coming. Exam Vital Signs: Temperature 98.4 F 07/25/17 08:00 Pulse Rate 92 07/25/17 08:00 Respiratory Rate 20 07/25/17 08:00 Blood Pressure 112/56 07/25/17 08:00 Pulse Oximetry 95 07/25/17 08:00 Height/Weight/BMI: Height 1.59 m Weight 54.3 kg Body Mass Index 21.6 - Constitutional Present: no acute distress, well nourished, well developed - Routine HEENT Exam Eye: Present: EOMI ENT: Present: mucous membranes moist, oropharynx clear - Routine Respiratory Exam Present: CTA bilaterally. Absent: wheezes - Routine Cardiovascular Exam Present: RRR, S1, S2. Absent: murmur - Routine Abdominal Exam Present: soft, normoactive bowel sounds, non distended. Absent: tenderness - Routine Extremities Exam Present: no edema, normal capillary refill - Routine Skin Exam Present: dry, warm - Routine Neurological Exam Present: alert, oriented X3, CN II-XII intact - Routine Psychiatric Exam Present: normal affect Comments: A little tearful today. IRU A/P (1) Unspecified fall, subsequent encounter Current visit: Yes Status: Acute (2) Left hip pain Current visit: Yes Status: Acute No evidence of significant injury noted on imaging. Some benefit with iontophoresis so likely I think this is trochanteric bursitis. (3) Back pain Qualifiers: Back pain location: low back pain Chronicity: chronic Back pain laterality: midline Sciatica presence: without sciatica Qualified Code(s): M54.5 - Low back pain; G89.29 - Other chronic pain Current visit: Yes Status: Chronic (4) Anemia Qualifiers: Anemia type: due to chronic kidney disease Chronic kidney disease stage: stage 3 (moderate) Qualified Code(s): N18.3 - Chronic kidney disease, stage 3 (moderate); D63.1 - Anemia in chronic kidney disease Current visit: Yes Status: Chronic (5) Debility Current visit: Yes Status: Acute (6) UTI (urinary tract infection) Qualifiers: Urinary tract infection type: acute cystitis Hematuria presence: with hematuria Qualified Code(s): N30.01 - Acute cystitis with hematuria Current visit: Yes Status: Resolved DVT Prophylaxis: Lovenox Resuscitation Status: Do Not Resuscitate - Course Hospital Course: John Fowler MD: 07/17/17 14:37 Patient is cooperative with therapy. She requests no resuscitation in the event of an arrest. Recent fever appears to have resolved. CT of left hip negative. 07/18/17 11:24 UTI diagnosed. Low-grade temp 99. Cooperative with therapy and making progress. 07/20/17 11:30 Cooperate with therapy. Making progress. Iontophoresis started today with regard to left hip bursitis. 07/21/17 11:01 Patient is doing well with therapy. Anticipate safe transfer to home early next week. 07/24/17 11:18 Pain more in the left groin rather than the trochanteric bursitis at the present time. Requires frequent motivation and encouragement. Anticipate safe transfer to home tomorrow. 07/25/17 11:18 Daisy has met all goals for OT and PT. Anticipates a transfer to her son's home today. Home health physical therapy and occupational therapy will be involved as well. - Interventions to Obtain Goals PT Treatment Plan: Balance/Proprioception, Electrical Stimulation, Functional Activities, Hot/Cold Pack, Gait Training, Patient/Family Education, Therapeutic Exercise OT Treatment Plan: ADL (Basic Care), Balance Training, IADL, Pt./Family Education, Ther. Exercise for ADL Goals Progress/Modifications: I contacted Dr. Hernandez's office to let them know about her dismissal and at there would be lab coming in a week (CBC with differential and BMP).
--- NOTE | 2017-07-25 11:20 | IRU Team Meeting ---
IRU Team Meeting - Nursing Bladder Assistive Devices Utilized:: Absorbent Pad Bladder Management Level of Assist: Modified Independent Bladder Frequency of Accidents: No accidents Bowel Assistive Devices Utilized:: Medication Bowel Management Level of Assist: Modified Independent Bowel Frequency of Accidents: No accidents Vital Signs: Vital Signs - 24 hr 07/24/17 16:00 07/24/17 20:39 07/25/17 07:20 Temperature 98.3 F 98.3 F Pulse Rate 62 77 Respiratory Rate 20 16 18 Blood Pressure 116/50 127/54 Pulse Oximetry 92 98 07/25/17 08:00 Temperature 98.4 F Pulse Rate 92 Respiratory Rate 20 Blood Pressure 112/56 Pulse Oximetry 95 Current Medications: Acetaminophen (Tylenol Arthritis 650 Mg Sr) 650 mg PO Q6HR PRN PRN Reason: P Last Admin: 07/24/17 13:10 Dose: 650 mg Hydrocodone Bitart/Acetaminophen (Leroy 5/325) 0.5 tab PO Q4H PRN PRN Reason: Pain Last Admin: 07/25/17 06:30 Dose: 0.5 tab Amlodipine Besylate (Norvasc) 5 mg PO DAILY [facility] Last Admin: 07/25/17 08:58 Dose: 5 mg Aspirin (Ecotrin) 81 mg PO DAILY [facility] Last Admin: 07/25/17 08:57 Dose: 81 mg Diclofenac Sodium (Voltaren) 1 applic TP QID PRN PRN Reason: Pain Last Admin: 07/17/17 19:31 Dose: 1 applic Enoxaparin Sodium (Lovenox) 40 mg SQ DAILY [facility] Last Admin: 07/25/17 09:07 Dose: 40 mg Ferrous Sulfate (Feosol) 324 mg PO WB [facility] Last Admin: 07/25/17 08:58 Dose: 324 mg Lidocaine (Lidoderm) 1 patch TOP DAILY [facility] Last Admin: 07/25/17 09:07 Dose: 1 patch Lidocaine HCl/Dextrose (Lidoderm Patch Removal) 1 removal TOP 2100 [facility] Last Admin: 07/24/17 22:09 Dose: 1 removal Magnesium Hydroxide (Mom) 30 ml PO DAILY PRN PRN Reason: Constipation Last Admin: 07/24/17 09:04 Dose: 30 ml Metoprolol Tartrate (Lopressor) 12.5 mg PO BIDWM [facility] Last Admin: 07/25/17 08:58 Dose: 12.5 mg Multivitamins/Minerals (Therapeutic - M) 1 tab PO DAILY [facility] Last Admin: 07/25/17 08:58 Dose: 1 tab Ondansetron HCl (Zofran Po) 4 mg PO Q6HR PRN PRN Reason: Nausea Last Admin: 07/25/17 10:11 Dose: 4 mg Prednisone (Deltasone 1 Mg) 3 mg PO WB [facility] Last Admin: 07/25/17 08:58 Dose: 3 mg Current Medical Issues: Anemia of chronic disease, left hip pain likely related to trochanteric bursitis , debilitation Comments: I certify that I personally led the interdisciplinary team meeting and agree with comments, barriers and goals indicated. Team meeting was held in the patient's room with the patient and the following family members present: patient alone Daisy has done very well with therapy. Bobby makes her nauseated so she will stay on Tylenol only. Her creatinine is stable. She has completed therapy for her UTI. Hemoglobin remained stable at 8.6. This will be followed up as an outpatient in about a week. - Physical Therapy Bed, Chair, Wheelchair Transfer Assist: Modified Independent, 1 Person Assist Ambulation Ability: Modified Independent Ambulation Distance: 172 Stair Climbing Ability: Stand By Assist/Supervision, Household Exception, 1 Person Assist Number of Steps Climbed: 4 Car Transfer Ability: Stand By Assist/Supervision, 1 Person Assist Comments: She has done well and has met goals. - Occupational Therapy Eating Ability: Independent Grooming Ability: Independent Bathing Ability: Modified Independent Upper Body Dressing Ability: Independent Lower Body Dressing Ability: Modified Independent Tub Transfer Assist: Modified Independent Toileting Assist: Modified Independent Toilet Transfer Assist: Modified Independent Comments: She has done well and has met goals. - Goals Physical Therapy Goals: 07/25/17. 1. Tinetti balance test of . 2. Be consistent with participating with therapy. 3. D/C planning. Occupational Therapy Goals: OT goals 07/18/17: 1.) Upper body dressing independently.- met. 2.) Lower body dressing with modified independence.- met. 3.) Toilet transfers with modified independence.- met. 4.) Light meal preparation with modified independence. -met. OT goals 07/25/17: 1.) Discharge planning - Barriers to Discharge Barriers to Attaining Goals: Other (she requires positive reinforcement for motivation. Continued work on balance and endurance is indicated.) - Care Plan Anticipated Length of Stay (days): 0 Anticipated DC Destination: Home, Self Care, Home Health Service I have led this team conference and agree with the plan. Interventions/Goals: Patient is medically stable for transfer to her son's home. Home health will be involved as well for PT, OT and senior care.
--- NOTE | 2017-07-25 15:04 | Discharge Summary ---
Discharge Information Date of admission: 07/13/17 16:04 Anticipated date of discharge: 07/25/17 Attending Physician: John Fowler MD Primary care physician: Debby Hernandez, Consults: 07/13/17 19:37 Physician [Physician Consult] [CONS] Routine Consulting Provider: Vannesa Raymundo Reason For Exam: Medical Management Ordering Provider has Notified Dredge Worker: No - Discharge Diagnosis (1) Unspecified fall, subsequent encounter Status: Acute (2) Left hip pain Status: Acute (3) Back pain Status: Chronic (4) Anemia Status: Chronic (5) Debility Status: Acute 1. Fall with prolonged time on the floor 2. Acute kidney injury during acute hospital stay-resolved 3. Generalized debility 4. Anemia of chronic disease 5. Left hip trochanteric bursitis 6. Low back pain chronically - Laboratory Labs: 07/24/17 04:26 07/24/17 04:26 - Microbiology Microbiology 07/15/17 10:31 Peripheral/Iv Start Blood Culture - Final No Growth After 5 Days 07/15/17 10:30 Peripheral/Iv Start Blood Culture - Final No Growth After 5 Days 07/18/17 00:45 Urine, Voided (Cc/notcc) Urine Culture - Final Escherichia coli History of Present Illness HPI: Ms. Worley fell on 07/07/2017. She was unable to get up and remained on the floor until 07/10/2017. At that time she was discovered by her family. At that point EMS was called and she was taken to the hospital at [facility]. She was admitted with acute kidney injury. She does have a history of kidney transplant remotely but her kidney function has been stable. Creatinine was 1.51. We do not have copies of the CK to confirm rhabdomyolysis at that time. She was given IV fluids and stabilized. However as a result of this fall and dehydration she developed severe debilitation with multiple functional deficits and was felt to be a good candidate for acute inpatient rehabilitation. She was transferred to acute inpatient rehabilitation on 2017. Hospital Course This is a general summary of the patient's hospital course. For more details refer to the complete medical record. The patient was admitted to acute inpatient rehabilitation and followed by the hospitalist service as well as Dr. Burton medical records secretary. She was cooperative with therapy. From a medical standpoint her hemoglobin was monitored. It remained stable. Final hemoglobin on 07/24/2017 was 8.6. Her creatinine improved and was 1.1 as of dismissal. The patient did complain of fatigue. Also complained of left hip pain. When radiograph and CT scan of the left hip failed to reveal acute abnormalities. It did demonstrate the previous hip replacement. She was very tender to palpate over the left trochanteric bursa and for this reason was felt to have trochanteric bursitis. This was addressed with iontophoresis and dexamethasone topically. The following levels of functional competence are to be considered preliminary information. The reader is encouraged to refer to actual therapy notes and reports for specific details. The patient was followed by physical therapy while on acute inpatient rehabilitation. At the conclusion of her stay, the following functional competencies were identified: She was able to transfer with modified independent level of functioning. She was able to ambulate with a front-wheeled walker 172 feet at modified independent level. She was felt to be stable on her feet and had good safety awareness. The patient was followed by occupational therapy while on acute inpatient rehabilitation. At the conclusion of her stay, the following functional competencies were identified: Patient did well with occupational therapy as well. She was independent to modified independent level for all activities including dressing, grooming, toileting and bathing. Patient did complain of some foot numbness. For this reason family requested that she see a neurologist. This is arranged as an outpatient with Dr. Sharma in [place]. At the time of dismissal she is felt to be stable. She is planning to live with her son in [place] at the present time. No pain medications were prescribed at this time. Follow-up will be with Dr. Debby Hernandez as well as Dr. Sharma, neurologist. 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 Anemia, acute on chronic Plan: 07/14/2017 Agree with IRU admission. Therapy per attending. We will follow for medical management, care post discharge will be returned to Dr. Mary. We will need to follow lab frequently due to her multiple comorbidities. Anemia is noted, unclear on her baseline. Her hemoglobin was around 12 upon acute admission, but she was quite dehydrated. She does have noted macrocytosis. B12 was elevated. Folate not done, will assess. Mild Rhabdo, with CPK 279, trending down on discharge. Despite abnormal EKG, Troponin ok. She is chronically immunosuppressed. White blood cell count mildly elevated, but she does not appear acutely infected. She is on chronic steroid therapy. Assess UA for baseline. Chest x-ray done at [facility] was benign. Assess EKG for baseline here at [facility]. Continue Lidoderm patch for pain control of lower back. Use caution with Voltaren gel even her known chronic kidney disease. If pain & weakness persist, we may need to consider an MRI of her lumbar spine. Will add LMWH for DVT px. Continue supportive care. Thank you for the consult- we will follow with you. 07/18/17 UTI with E. coli - Cipro started 07/18/17. Sensitivities pending. Leukocytosis resolved. Anemia - iron studies are low. Continue ferrous sulfate. Folate normal. 07/22/17 L hip pain improving after iontophoresis on 07/20 Labs from 09/18 reviewed - anemia stable with hgb 8.5. Increase in platelets noted to 404. WBC normal. Repeat labs on 07/24. Continue Cipro for E. coli UTI - will plan on 5-day course. DC planned 07/25. Time spent with patient: greater than 35 minutes Resuscitation Status: Do Not Resuscitate Discharge Plan - Med Rec/Dispo Referrals/Follow Up: Alexey Sharma MD [Physician] - (Dr. Jonathon Sharma on 08/10/17 at 3:30 pm. [facility] [address] [place] [address] ) Debby Hernandez DO [Primary Care Provider] - (Dr. Blu Hernandez on 08/01/17 at 10:40 am for Hosp. follow-up. Check in at 10:30 am. [facility] [place] [address] ) [place] Instructions: Hip Bursitis (GEN), Fall Prevention (DC) Prescriptions: New Ferrous Sulfate [Feosol] 324 mg PO WB tab Amlodipine [Norvasc] 5 mg PO DAILY #30 tab Continue predniSONE [Prednisone] 3 mg PO DAILY #0 Multivit,Calc,Mins/Iron/Folic [Thera M Plus Tablet] 1 tab PO DAILY #0 Aspirin [Aspir 81] 81 mg PO DAILY #0 Diclofenac Top Gel [Voltaren] 1 applicatio TP QID Ondansetron HCl [Zofran] 4 mg PO Q6HR PRN PRN Reason: Nausea Acetaminophen [Tylenol Arthritis] 650 mg PO Q6HR PRN #0 PRN Reason: PAIN Metoprolol Tartrate [Lopressor] 12.5 mg PO BIDWM Discontinued Amlodipine Besylate 10 mg PO DAILY #0 Ferrous Sulfate 325 mg PO BIDWM #0 Lidocaine 5% Patch [Lidoderm] 1 patch TOP DAILY - Disposition 01 Discharged Home, Self-Care - Dismissal Complete Discharge Instructions are:: Complete
--- NOTE | 2017-07-26 11:16 | Extended Care Facility Orders ---
Admission Orders Admit to:: [facility] Allergies/Adverse Reactions: Allergies cefdinir Allergy (Unknown, Verified 07/13/17 19:19) pneumococcal vaccine Allergy (Unknown, Verified 07/14/17 16:10) tramadol Allergy (Unknown, Verified 07/13/17 19:19) Admitting Diagnosis: Debility Admitting Physician: John Fowler MD Attending Physician: John Fowler MD Code Status: Do Not Resuscitate Anticiapted Length of Stay: 30 days or less Rehab Potential: fair Rehab Prognosis: fair Diet: Regular Wound/Incision Care: N/A May use Facility Protocol or Standing Orders: Yes May have flu vaccine: Yes Evaluations/Treatment: PT, OT, as needed [facility] Certification: I certify that SNF services are required to be given on an Inpatient basis because of the patients need for fdc care on a continuing basis for the condition(s) for which she received inpatient hospital services prior to her transfer to the SNF. SNF inpatient care is necessary for the following reasons Indication for [facility]: Med Admininistration - Additional Information In Event of Arrest: Do Not Start CPR Resident is Aware of Diagnosis: Yes Referrals: Alexey Sharma MD [Physician] - (Dr. Jonathon Sharma on 08/10/17 at 3:30 pm. [facility] [address] [address] ) Debby Hernandez DO [Primary Care Provider] - (Dr. Blu Hernandez on 08/01/17 at 10:40 am for Hosp. follow-up. Check in at 10:[address] [place] [id number] )
== END 2017-07-25 12:00 | DRG 552 ==
PROVIDERS: ADMIT Orthopaedic Surgery; ATTEND Orthopaedic Surgery